=== PATIENT | female | born 1965 | race American Indian/Alaskan Native ===

== ENCOUNTER 2022-07-10 23:49 | Emergency (ER) | payer OTHER ==
[2022-07-11] MEDS ORDERED: TETANUS,DIPH,PERTUSS(ACELL) VACCINE 0.5 ML SYRINGE IM ONE (08:07)
[2022-07-11] MEDS ORDERED: oxyCODONE /ACETAMINOPHEN 5-325MG TAB PO ONE (08:07)
[2022-07-11] MEDS ORDERED: KETOROLAC 10 MG TAB PO ONE (08:07)
[2022-07-11] MEDS ORDERED: CYCLOBENZAPRINE 10 MG TAB PO ONE (08:07)
[2022-07-11] MEDS ORDERED: LIDOCAINE JELLY (2%) 5 ML TOPICAL TP ONE (08:07)
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
[2022-07-11 10:51] VITALS: BP 138/84
== END 2022-07-11 10:50 | disposition home or self-care (01) ==
LOC: ED 23:49
DX: S01.01XA Laceration without foreign body of scalp, initial encounter (principal); M54.2 Cervicalgia; M54.9 Dorsalgia, unspecified; R51.9 Headache, unspecified; V89.2XXA Person injured in unspecified motor-vehicle accident, traffic, initial encounter; Y93.89 Activity, other specified; Y92.89 Other specified places as the place of occurrence of the external cause; Y99.8 Other external cause status
CPT/HCPCS: 70450; 72125; 72131; 90471; 90715; 99284

== ENCOUNTER 2022-07-19 11:05 | Emergency (ER) | payer OTHER ==
--- NOTE | 2022-07-19 12:55 | Emergency Department Report ---
Suture/Staple Removal - [facility] Chief Complaint: Laceration/Recheck/Suture Stated Complaint: JOLLY REMOVED FROM HEAD Time Seen by Provider: 07/19/22 12:37 When Sutures or [place] Placed: 8-10 Days Ago (two staple to back of scalp) ED Review of Systems ROS: Stated complaint: JOLLY REMOVED FROM HEAD Other details as noted in HPI Comment: All other systems reviewed and negative ED Past Medical Hx - Past Medical History Previous Medical History?: No - Medications Home Medications: Home Medications Medication Instructions Recorded Confirmed Last Taken Type Cyclobenzaprine [Flexeril] 10 mg PO TID PRN #30 tab 07/11/22 Unknown Rx Ketorolac [Toradol] 10 mg PO Q6H PRN #12 tab 07/11/22 Unknown Rx Suture Removal Exam - Exam General: Vital signs noted. No distress. Alert and acting appropriately. Patient has 2 jolly in the back of her scalp and occipital region. No headache no dizziness. No drainage. No fever reported. Wound: No Pathologic Erythema, No Tenderness, No Drainage, No Pus, No Wound Dehiscence Other Systems: All other systems reviewed and are unremarkable. ED Recheck MDM - Medical Decision Making Patient here for his 2 staple removals. Patient had jolly placed 8 days ago here in this ER. Patient reports no fever, no drainage, no redness, no tenderness at the site of jolly. 2 jolly removed using staple remover. Patient tolerated procedure well. Patient informed to keep incision clean and dry. Patient agrees with plan of care verbalized understanding. Patient informed if symptoms are to develop such as infection to report back to the ER for further evaluation. Critical care attestation.: If time is entered above; I have spent that time in minutes in the direct care of this critically ill patient, excluding procedure time. ED Disposition Clinical Impression: Removal of staple Disposition: 01 HOME / SELF CARE / HOMELESS Is pt being admited?: No Condition: Stable Instructions: Wound Closure Removal, Care After
== END 2022-07-19 13:00 | disposition home or self-care (01) ==
LOC: ED 11:05
DX: S01.01XD Laceration without foreign body of scalp, subsequent encounter (principal); Z53.21 Procedure and treatment not carried out due to patient leaving prior to being seen by health care provider; X58.XXXD Exposure to other specified factors, subsequent encounter
CPT/HCPCS: 99282